=== PATIENT | female | born 1960 | race Caucasian/White ===

== ENCOUNTER 2020-02-02 15:58 | Outpatient (CLI) | payer OTHER, SELFPAY ==
--- NOTE | ~2020-02-02 | MM_ITS ---
EXAMINATION: MM screening jonny BI w yung HISTORY: Screening mammogram TECHNIQUE: Craniocaudal and mediolateral oblique 3-D tomosynthesis images were obtained and synthetic 2-D images were generated. CAD analysis was submitted and interpreted. COMPARISON: 09/15/2018 and 01/11/2008 bilateral digital screening mammogram examinations BREAST PARENCHYMAL COMPOSITION: There are scattered areas of fibroglandular density. FINDINGS: There is no evidence of suspicious mass, calcification, or architectural distortion to sugg est malignancy in either breast. There has been no suspicious interval change. IMPRESSION: 1. No mammographic evidence of malignancy. 2. Recommend routine screening mammography in one year. BI-RADS Category 1: Negative Reviewed, dictated and finalized at location A.
== END 2020-02-02 15:59 | disposition home or self-care (01) ==
LOC: ANHIMG 16:01
PROVIDERS: PCP Obstetrics & Gynecology; Visit Provider Nurse Practitioner Obstetrics & Gynecology
DX: Z12.31 Encounter for screening mammogram for malignant neoplasm of breast (principal)
CPT/HCPCS: 77063; 77067

== ENCOUNTER 2024-08-14 14:00 | Emergency (ER) | payer BC, SELFPAY ==
--- NOTE | 2024-08-14 14:01 | ED.SKABFB ---
HPI - Skin/Abscess/Foreign Bdy General Chief complaint: Skin/Abscess/Foreign Body Stated complaint: Rash Time Seen by Provider: 08/14/24 14:01 Source: patient Mode of arrival: ambulatory Limitations: no limitations History of Present Illness HPI narrative: Kasandra is a 63-year-old female patient presenting to the clinic today with complaints of a rash to her face-forehead, around right eye, right temporal area, and right ear. She reports rash has been there for 1 month however, Thursday it started to spread and got more swollen and painful. Denies any fever or chills. Denies any history of shingles. Has an area to the right temporal that is draining some yellow crusty discharge. No visual changes or eye pain. Related Data Home Medications ?Medication ?Instructions ?Recorded ?Confirmed ?Last Taken ?Type No Home Medications 08/14/24 08/14/24 Unknown History Allergies Allergy/AdvReac Type Severity Reaction Status Date / Time No Known Allergies Allergy Verified 08/14/24 14:13 Review of Systems Review of Systems: Pertinent positives per HPI. Patient denies any fever, chills,visual changes, dizziness, cough, runny nose, sore throat, shortness of breath, chest pain, palpitations, nausea, vomiting, diarrhea, constipation, abdominal pain, or any urinary issues. PMFSH Comments At the time of my signature, I reviewed and agree with the nursing past medical, surgical, social, and family history. There is no relevant family history pertinent to the patient complaint. Exam Narrative: General: Well-developed, well nourished, in no apparent distress Head: Normocephalic, atraumatic. Cardio: Regular rate and rhythm, s1 and s2 normal, no murmur appreciated. Resp: Clear to auscultation bilaterally, no rhonchi, rales, wheezing or rubs. Integumentary: [place], warm, and dry, red, raised erythemic, ttp rash to the forehead, periorbital area, temporal area, and right ear. Swelling noted to the right temporal area and right ear. Right temporal area with yellow crusting discharge. Course Course Emergency Course: Portions of this record may have been created with voice recognition software. Level of Care: Express Care Visit Vital Signs Vital signs: Vital signs reviewed Transfer Transfered to: [place] Transportation: Other (Private car) Transfer rationale: Facial cellulitis Accepting physician: Dr. Whalen Transfer comments: private car MDM - Skin/Abscess/Foreign Bdy MDM Narrative Medical decision making narrative: At the time of visit patient is resting comfortably on the exam table. Patient appears to be nontoxic. Plan: Recommend transfer to the ED for further evaluation of facial cellulitis. Patient agrees to be transferred to [facility]. Discussed patient case with Dr. Whalen at [facility] and he accepts patient for transfer. Patient to go via private car. Differential Diagnosis Differential diagnosis: Likely abscess of skin or subcutaneous tissue, viral exanthem, dermatophytosis, urticaria, herpes zoster, allergic reaction to drug, cellulitis, eczema, insect bites, impetigo and contact dermatitis Discharge Plan Discharge Clinical Impression: Cellulitis of face Patient Disposition: Acute Care Hospital Condition: Stable Patient Language: Amharic Prescriptions: No Action No Home Medications Follow-up/Referrals: UNKNOWN,DOCTOR [Non-Staff] - Time of Disposition: 14:19 Quality NIHSS Nursing Documentation ED NIHSS nursing documentation: reviewed/agree
[2024-08-14 14:06] VITALS: BP 161/85; PULSE 79; RESP 16; TEMP 36.7; O2SAT 98
== END 2024-08-14 14:17 | disposition short-term general hospital (02) ==
PROVIDERS: Emergency Provider Nurse Practitioner Family
DX: L03.213 Periorbital cellulitis (principal); L03.211 Cellulitis of face
CPT/HCPCS: 99202; G0463

== ENCOUNTER 2024-08-14 14:40 | Emergency (ER) | payer BC, SELFPAY ==
[2024-08-14 14:49] VITALS: BP 161/63; PULSE 66; RESP 16; TEMP 36.7; O2SAT 94
--- NOTE | 2024-08-14 15:30 | ED.GENADULT ---
HPI - General Adult General Chief complaint: Skin/Abscess/Foreign Body Stated complaint: facial cellulitis Time Seen by Provider: 08/14/24 14:48 History of Present Illness HPI narrative: Patient is a 63-year-old female who presents ER with skin infection from urgent care. Has had redness on her forehead centrally spreading bilaterally over last 3-4 days. It is charge involve her eyebrow and periorbital region on the right side and she has pus draining from the temporal region her hairline. She has some induration irritation to her ear. Related Data Allergies Allergy/AdvReac Type Severity Reaction Status Date / Time No Known Allergies Allergy Verified 08/14/24 14:57 Review of Systems Review of Systems: All systems reviewed & are unremarkable except as noted in HPI and below Constitutional: Constitutional: Reports no additional constitutional complaints ENT: Reports system reviewed and no additional complaints, except as documented Integumentary/Breasts: Skin/Breast: Denies pruritus, Reports erythema and Reports rash Comments: pustules Exam Narrative: GENERAL: Well-appearing, well-nourished, and in no acute distress. HEAD: Normocephalic, atraumatic. ENT: Mucous membranes moist. TMs and ear canals normal bilaterally. EXTREMITIES: Normal range of motion. No edema. SKIN: Erythema of the central forehead moving into the eyebrows bilaterally. There is additional infraorbital swelling on the right side and a draining abscess in the right temporal region in the air. The right ear is thickened and has some scabbed over areas. NEURO: Alert and oriented x3. PSYCH: Normal mood and affect. Course Course Emergency Course: Superficial skins infection. It may be simply impetigo but with multiple pustular regions we will place patient on broad-spectrum antibiotic orally and topical antibiotic. The draining abscess in the right evangelical was numbed with lidocaine with epinephrine so she could tolerate drainage but no incision was made. Vital Signs Vital signs: Vital Signs Temperature 98.1 F 08/14/24 14:49 Pulse Rate 66 08/14/24 14:49 Respiratory Rate 16 08/14/24 14:49 Blood Pressure 161/63 H 08/14/24 14:49 Pulse Oximetry 94 08/14/24 14:49 Oxygen Delivery Room Air 08/14/24 14:49 Temperature 98 F 08/14/24 15:57 Pulse Rate 69 08/14/24 15:57 Respiratory Rate 16 08/14/24 15:57 Blood Pressure 173/70 H 08/14/24 15:57 Pulse Oximetry 95 08/14/24 15:57 Oxygen Delivery Room Air 08/14/24 14:49 Medical Decision Making Vital Signs Vital Signs: Vital Signs Temperature 98.1 F 08/14/24 14:49 Pulse Rate 66 08/14/24 14:49 Respiratory Rate 16 08/14/24 14:49 Blood Pressure 161/63 H 08/14/24 14:49 Pulse Oximetry 94 08/14/24 14:49 Oxygen Delivery Room Air 08/14/24 14:49 Temperature 98 F 08/14/24 15:57 Pulse Rate 69 08/14/24 15:57 Respiratory Rate 16 08/14/24 15:57 Blood Pressure 173/70 H 08/14/24 15:57 Pulse Oximetry 95 08/14/24 15:57 Oxygen Delivery Room Air 08/14/24 14:49 Discharge Plan Discharge Clinical Impression: Cellulitis of face Patient Disposition: Home, Self-Care Condition: Stable Instructions: Cellulitis (ED), Abscess (ED) Additional Instructions: Return the ER if you have fever over 100.4? F, you cannot keep down food water, you lose consciousness, or have additional concerns. Patient Language: Sinhala Prescriptions: New sulfamethoxazole-trimethoprim [Bactrim DS] 800-160 mg tablet 1 tablet PO Q12H Qty: 14 0RF mupirocin 2 % ointment 1 applic topical TID Qty: 15 0RF hydrocodone-acetaminophen 5-325 mg tablet 1 tablet PO Q6H PRN (Reason: pain) Qty: 10 0RF Follow-up/Referrals: Harika Noguera DO [Physician] - 1 Week PHYSICIAN,[employer]ER [employer] [Primary Care Provider] -
[2024-08-14 15:57] VITALS: BP 173/70; PULSE 69; RESP 16; TEMP 36.6; O2SAT 95
== END 2024-08-14 15:58 | disposition home or self-care (01) ==
PROVIDERS: Emergency Provider Emergency Medicine
DX: L03.211 Cellulitis of face (principal)
CPT/HCPCS: 87070; 87075; 87181; 87205; 99283; J2004